=== PATIENT | male | born 1995 | race Caucasian/White ===

== ENCOUNTER 2016-08-20 23:40 | Emergency (ER) | payer SELFPAY | END 2016-08-21 02:35 | disposition home or self-care (01) | LOC: ER1 23:40 | DX: S29.012A Strain of muscle and tendon of back wall of thorax, initial encounter (principal); F17.210 Nicotine dependence, cigarettes, uncomplicated; V49.40XA Driver injured in collision with unspecified motor vehicles in traffic accident, initial encounter | CPT/HCPCS: 71020; 72170; 96372; 99284; J1885 ==